=== PATIENT | male | born 1960 | race Caucasian/White ===

== ENCOUNTER 2016-09-29 11:36 | Emergency (ER) | payer BC ==
[~2016-09-29] VITALS: Wt 62.5 kg
[2016-09-29] MEDS ORDERED: LORAZEPAM 1 MG TAB PO ONE (13:00)
[2016-09-29 13:13] LABS: ADD SCAN DIFF NO
[2016-09-29 13:16] LABS: BASOPHIL # 0.1 10^3/ul (0.0-0.1); BASOPHILS % 1.1 % (0.0-2.0); EOSINOPHILS # 0.1 10^3/ul (0.0-0.5); EOSINOPHILS % 1.8 % (0.0-7.0); HEMATOCRIT 47.8 % (42.0-52.0); LYMPHOCYTES # 1.1 10^3/ul (0.8-2.9); LYMPHOCYTES % 17.4 % (15.0-51.0); MEAN CORPUSCULAR HEMOGLOBIN 32.3 pg (29.0-33.0); MEAN CORPUSCULAR HGB CONC 33.5 g/dl (32.0-37.0); MEAN CORPUSCULAR VOLUME 96.4 fl (82.0-101.0); MEAN PLATELET VOLUME 9.6 fl (7.4-10.4); MONOCYTE # 0.7 10^3/ul (0.3-0.9); MONOCYTES % 10.8 % (0.0-11.0); NEUTROPHIL # 4.5 10^3/ul (1.6-7.5); NEUTROPHILS % 68.6 % (39.0-77.0); PLATELET COUNT 247 10^3/UL (140-415); RED BLOOD COUNT 4.96 10^6/ul (4.70-6.10); RED CELL DISTRIBUTION WIDTH 13.8 % (11.5-14.5); WHITE BLOOD COUNT 6.5 10^3/ul (4.8-10.8)
[2016-09-29 13:35] LABS: ALBUMIN 4.9 g/dl (3.3-4.9); CHLORIDE 106 mmol/L (97-110)
[2016-09-29 13:36] LABS: POTASSIUM 5.7 mmol/L (3.5-5.1); SODIUM 145 mmol/L (135-144)
[2016-09-29 13:38] LABS: ALBUMIN/GLOBULIN RATIO 1.75; ANION GAP 18 (8-16); ASPARTATE AMINO TRANSFERASE 28 IU/L (15-46); BILIRUBIN,INDIRECT 0.1 mg/dl (0-1.1); BILIRUBIN,TOTAL 0.1 mg/dl (0.2-1.3); CARBON DIOXIDE 27 mmol/L (21-31); CREATININE 0.77 mg/dl (0.61-1.24); TOTAL PROTEIN 7.7 g/dl (6.1-8.1)
[2016-09-29 13:39] LABS: ALANINE AMINOTRANSFERASE 37 IU/L (13-69); ALKALINE PHOSPHATASE 64 IU/L (42-121); BLOOD UREA NITROGEN 13 mg/dl (7-20); CALCIUM 9.6 mg/dl (8.4-10.2); GLUCOSE 75 mg/dl (70-220)
--- NOTE | 2016-09-29 13:41 | RADRPT ---
PROCEDURE: CT Brain without contrast. CLINICAL INDICATION: Left arm and left-sided numbness TECHNIQUE: CT scan of the brain was performed on a multidetector high-resolution CT scan. Axial im aging was obtained of the brain without contrast administration. Coronal and sagittal reformatted i mages were obtained from the axial source images. Standard CT scan of the head without contrast prot ocols were performed. The total exam CTDI equals 44.99 mGy and the total exam DLP equals 630.2 mGy-cm. One or more of the following dose reduction techniques were used: - Automated exposure control. - Adjustment of the mA and/or kV according to patient size. Use of iterative reconstruction technique. COMPARISON: None. FINDINGS: The ventricular system and peripheral CSF spaces are unremarkable. Negative for intracranial masses hemorrhages or midline shift. The britton-white matter junction is unremarkable. The bones and titus rium are intact. The paranasal sinuses visualized are unremarkable. Mastoids are unremarkable. IMPRESSION: 1. No evidence of intracranial masses hemorrhages or midline shift. RPTAT:AAJJ Physician Angeline Date Time Electronically viewed and signed by Physician Angeline on 09/29/2016 13:41 /
[2016-09-29 14:01] LABS: TROPONIN-I < 0.012 ng/ml (0.00-0.12)
--- NOTE | 2016-09-29 14:18 | ERD ---
ER Documentation Chief Complaint Date/Time DATE: 09/29/16 TIME: 14:12 Chief Complaint left arm numbness [id number] HPI This is a 56-year-old male with history of anxiety presenting to the emergency department complaining of left arm numbness and tingling for the past 3 days. Patient states that it comes and goes, he states that it started off with having on/off numbness and tingling in his shoulder for past three years. He states that he also started having left sided facial numbness and tingling that comes and goes. Patient denies any focal weakness, generalized weakness, he denies any headache, neck pain or any trauma. Patient does admit to having 2 beers almost every day. Patient rates as mild in severity ROS All systems reviewed and are negative except as per history of present illness. PMhx/Soc Medical and Surgical Hx: Unable to obtain Hx Alcohol Use: No Hx Substance Use: No Hx Tobacco Use: No Smoking Status: Never smoker Physical Exam Vitals Vital Signs Date Time Temp Pulse Resp B/P Pulse Ox O2 Delivery O2 Flow Rate FiO2 09/29/16 11:43 98.7 70 20 157/83 98 Physical Exam GENERAL: well-developed/well-nourished, in no apparent distress, non-toxic appearing HENT: NC/AT, bilateral tympanic membrane is normal with good cone of light, nares patent, oropharynx clear without exudates EYES: Conjunctiva normal, PERRLA, EOMI, no nystagmus noted NECK: Supple, no lymphadenopathy PULM: CTA bilaterally, no rales, rhonchi, or wheezing heard CV: Normal S1S2, RRR, good capillary refill GI: Soft, non-distended, normal bowel sounds, non-tender BACK: No midline tenderness, no masses, No CVAT EXT: No clubbing, cyanosis, or edema NEURO: Alert and orientated to person, place, and time. CN II-IIX intact. Gait and coordination were normal. Hand ad compositor strength were equal and within normal limits SKIN: Intact, normal turgor PSYCH: Normal mood and mentation, patient denied SI Result Diagram: 09/29/16 1300 09/29/16 1300 Results 24 hrs Laboratory Tests Test 09/29/16 13:00 White Blood Count 6.510^3/ul Red Blood Count 4.9610^6/ul Hemoglobin 16.0g/dl Hematocrit 47.8% Mean Corpuscular Volume 96.4fl Mean Corpuscular Hemoglobin 32.3pg Mean Corpuscular Hemoglobin Concent 33.5g/dl Red Cell Distribution Width 13.8% Platelet Count 35200^3/UL Mean Platelet Volume 9.6fl Neutrophils % 68.6% Lymphocytes % 17.4% Monocytes % 10.8% Eosinophils % 1.8% Basophils % 1.1% Nucleated Red Blood Cells % 0.0/100WBC Neutrophils # 4.510^3/ul Lymphocytes # 1.110^3/ul Monocytes # 0.710^3/ul Eosinophils # 0.110^3/ul Basophils # 0.110^3/ul Nucleated Red Blood Cells # 0.010^3/ul Sodium Level 145mmol/L Potassium Level 5.7mmol/L Chloride Level 106mmol/L Carbon Dioxide Level 27mmol/L Anion Gap 18 Blood Urea Nitrogen 13mg/dl Creatinine 0.77mg/dl Glucose Level 75mg/dl Calcium Level 9.6mg/dl Total Bilirubin 0.1mg/dl Direct Bilirubin 0.00mg/dl Indirect Bilirubin 0.1mg/dl Aspartate Amino Transf (AST/SGOT) 28IU/L Alanine Aminotransferase (ALT/SGPT) 37IU/L Alkaline Phosphatase 64IU/L Troponin I < 0.012ng/ml Total Protein 7.7g/dl Albumin 4.9g/dl Globulin 2.80g/dl Albumin/Globulin Ratio 1.75 Current Medications Medications (Trade) Dose Ordered Sig/Claudia Route PRN Reason Start Time Stop Time Status Last Admin Dose Admin Lorazepam (Ativan) 1 mg ONCE ONCE PO 09/29/16 13:00 09/29/16 13:01 DC 09/29/16 12:57 Procedures/MDM This is a 56-year-old male with history of anxiety presenting to the emergency department complaining of shoulder numbness and tingling that has been occurring for the past 3 years which have now progressed to the whole left arm in the past 2 days. Additionally patient has left-sided facial numbness and tingling that comes and goes in the past 2 days as well. Patient had a normal neurological exam, he had no generalized weakness. He is speaking clearly. I will low suspicion for CVA or ACS at this time. This appears to be related to anxiety versus radiculopathy. I discussed the patient that he is suitable to follow-up with his primary care physician for further evaluation management and to get a referral to see a orthopedist and fur tinter. EKG was done did not show any evidence of STEMI or hyperkalemia changes. CT of the head without contrast was done did not show any evidence of intracranial shift, acute pathology. Lab work was done in the ED, patient had a negative troponin. Patient did have mild hyperkalemia of 5.7, patient does not show any signs or symptoms of hyperkalemia and there was no changes with EKG. This may be due to hemolysis. However I have given patient diagnostic testing to follow-up with his primary care physician tomorrow. Strict precautions were given to her to the ER for any worsening sinus symptoms. Patient stable for discharge for home. He understands and agrees with this plan EKG: read and signed off by myself and Arias Singleton Rate/Rhythm: [Bradycardia at 57 bpm] QRS, ST, T-waves: [No changes consistent w/ acute ischemia] Impression: [No evidence of ischemia or arrhythmia] Departure Diagnosis: Primary Impression: Numbness and tingling Additional Impression: Left facial numbness Condition: Stable Patient Instructions: Numbness, Paraesthesias Additional Instructions: FOLLOW UP WITH YOUR PRIMARY CARE PHYSICIAN TOMORROW.Return to this facility if you are not improving as expected. SPECIALIST: YOU HAVE A MEDICAL CONDITION WHICH REQUIRES YOU TO SEE A SPECIALIST fur tinter and orhtopedist WITHIN THE NEXT 1-2 DAYS. PLEASE FOLLOW UP WITH YOUR PRIMARY PHYSICIAN FOR REFFERAL.IF YOU DO NOT HAVE A PRIMARY CARE PHYSICIAN AND/OR YOU CAN NOT AFFORD TO SEE A PHYSICIAN THE FOLLOWING RESOURCES HAVE BEEN SUPPLIED TO YOU. IT IS YOUR RESPONSIBILITY TO BE SEEN BY THE SPECIALIST Return to this facility if you are not improving as expected. MATTHIEU ROCHE PA-C September 29, 2016 14:18
== END 2016-09-29 14:28 | disposition home or self-care (01) ==
LOC: FTE 11:36
DX: R20.0 Anesthesia of skin (principal); R20.2 Paresthesia of skin; M79.602 Pain in left arm
CPT/HCPCS: 70450; 80053; 84484; 85025